=== PATIENT | male | born 2005 | race Caucasian/White ===

== ENCOUNTER 2023-11-01 22:41 | Emergency (ER) | payer OTHER ==
[~2023-11-01] VITALS: Ht 177.8 cm; Wt 81.8 kg
[2023-11-01 22:48] VITALS: TEMP 98.1
[2023-11-01 23:19] VITALS: BP 118/66; PULSE 78
== END 2023-11-01 23:29 | disposition home or self-care (01) ==
LOC: COL.ER 22:41 → EDBD 22:42 → COL.ER 22:42
DX: S05.02XA Injury of conjunctiva and corneal abrasion without foreign body, left eye, initial encounter (principal); S05.01XA Injury of conjunctiva and corneal abrasion without foreign body, right eye, initial encounter; X58.XXXA Exposure to other specified factors, initial encounter; Y93.11 Activity, swimming; Y92.838 Other recreation area as the place of occurrence of the external cause